=== PATIENT | male | born 1985 | race African-American/Black ===

== ENCOUNTER 2024-05-03 21:10 | Emergency (ER) | payer OTHER ==
[~2024-05-03] VITALS: Ht 175.3 cm; Wt 88.0 kg
[2024-05-03 21:22] VITALS: BP 151/74; RESP 18; TEMP 36.7; O2SAT 98
[2024-05-03 21:23] VITALS: PULSE 91; O2SAT 99
[2024-05-03] MEDS ORDERED: OMEP40CA20 MT (21:58)
[2024-05-03] MEDS ORDERED: ONDA-239 PO (21:58)
[2024-05-03] MEDS: PANTOPRAZOLE 40MG DR TABLET PO STA (22:12)
[2024-05-03] MEDS: ONDANSETRON 4MG ODT PO STA (22:12)
== END 2024-05-03 22:13 | disposition home or self-care (01) ==
LOC: ER 21:27
DX: R10.816 Epigastric abdominal tenderness (principal); R11.0 Nausea; Z79.899 Other long term (current) drug therapy
CPT/HCPCS: 99283